=== PATIENT | female | born 1955 | race Caucasian/White ===

== ENCOUNTER 2020-03-14 05:26 | Emergency (ER) | payer BC, SELFPAY ==
[2020-03-14] VITALS (29 sets, daily range): BP systolic 126–167; BP diastolic 63–85; PULSE 93–127; RESP 13–23; TEMP 36.7; O2SAT 97–100
--- NOTE | 2020-03-14 05:15 | RT.EKG_ITS ---
APPROVED REPORT Exam: Resting ECG Patient Location: E HR:112 bpm ECG Measurements Heart Rate 112 AXIS MO 164 P 64 QRSd 87 QRS 59 QT 328 T 60 QTc 448 Conclusion Sinus tachycardia...rate> 99
--- NOTE | 2020-03-14 05:30 | DI.CT_ITS ---
EXAM: CT THORAX CTA CLINICAL HISTORY: chest pain, ?aortic dissection. TECHNIQUE: Imaging Protocol: Axial CT angiography was performed with multi-slice acquisition and mu lti-planar and/or 3D reconstructions. CONTRAST MATERIAL: Intravenous: Omnipaque 350 Contrast volume:63 mL COMPARISON: No exams were available for comparison FINDINGS: Pulmonary Arteries: Opacification of the pulmonary arteries is suboptimal; however, there is no evide nce of a filling defect to suggest pulmonary emboli. Tracheobronchial tree: Patent where visualized. Mediastinum and Aby: No dominant adenopathy or fluid collection. Pulmonary parenchyma: No consolidation or dominant measurable mass. No architectural distortion. Pleura: No effusion or pneumothorax. Heart: The heart is not dilated. No coronary artery calcifications are seen. No pericardial effusion. Aorta: Thoracic aorta non-dilated. No evidence of dissection. Mild atherosclerosis. Upper abdomen: Small hepatic cysts. Bones: Mild degenerative changes in the thoracic spine. Prior anterior cervical spine fusion. Soft tissues: Unremarkable. IMPRESSION: 1. There is suboptimal opacification of the pulmonary arteries which limits examination. No gross ev idence of pulmonary embolus is identified. 2. No evidence of aortic dissection or aneurysm. 3. Two probable hepatic cysts. RADIATION DOSE DELIVERED: 329.19mGy.cm Total DLP 329.19mGy.cm Total DLP DATA REPOSITORY: All CT scans at this facility are submitted to the National Radiology Data Registry (NRDR) Dose Index Registry (DIR) with the [employer] ([employer]). RADIATION OPTIMIZATION: All CT scans at this facility use at least one of these dose optimization te chniques: automated exposure control; mA and/or kV adjustment per patient size (includes targeted exa ms where dose is matched to clinical indication); or iterative reconstruction.
--- NOTE | 2020-03-14 05:35 | W.ED.GENAD ---
Discharge Plan Disposition Patient Disposition: HOME Condition: Improving Discharge Details Clinical Impression: Atypical chest pain, Heartburn, Palpitations Primary Care Provider: Nic Turk ED Provider: Elen Echols Home Meds and New Rx's Prescriptions: No Action Estring 2 mg (7.5 mcg /24 hour) ring 1 vag ring VAGINAL RF: 0 Discharge Instructions Instructions: Chest Pain (ED), Heart Palpitations (ED) Additional Instructions: Your workup today did not reveal any concerning findings Follow up with your primary care provider this week to discuss having stress testing If you feel more ill, have worsening pain or difficulty breathing, return immediately to the emergency department. Return the air sampling and monitoring to the hospital as directed by respiratory therapy. Discharge Data Discharge Date/Time-TO BE ENTERED AT DEPARTURE: 03/14/20 10:10 Discharge Physician: Elen Echols Medical Decision Making <Abad Napoles MD - Last Filed: 03/14/20 07:04> 64 yo female with known carotid dissections not on daily medication per patient comes in after she woke up with sensation of burning in her chest and checked her heart rate on her fit bit and it was 120 which is high for her as she is active. She took tums with some improvement in her pain but still has mild burning in the chest. No fevers, chills, cough. She arrives tachycardic with rates in the 120's, She has no leg swelling, jvd or calf pain. She has clear lungs without murmurs, denies ever being a smoker and denies drug use. Heart score is 2, will send troponin. Given known carotid dissections will obtain CTA of the chest to evaluate for possible aortic dissection. No evidence of dvt on exam and no hypoxia so doubt PE. pt's HR now down to 105 and has no complaints resting in the stretcher reading in no distress. Initial lab work unremarkable. CT pending. CT shows no acute findings and she remains stable, did advise of the two lesions in the liver and can f/u with pcp for this. Plan for delta troponin pt signed out to oncoming provider pending second troponin Differential Diagnosis Differential Diagnosis: nstemi, gerd, dissection Imaging Data Radiologic Study: Attestation: I personally reviewed and interpreted this imaging study as follows: Imaging: CT Scan Radiologist's impression: IMPRESSION: 1. No aortic dissection. 2. The study is limited for evaluation of pulmonary embolus with no gross evidence for pulmonary embolus identified. 3. Two low-density hepatic lesions, probably cysts. 4. Status post lower cervical spine fusion surgery. Lab Data Lab results reviewed: Yes I reviewed the patient's lab results. ECG Data Attestation: I personally reviewed and interpreted this ECG (s) as follows: Prior ECG tracings: not available for review Interpretation: sinus tachycardia, rate of 112, pr 164, qtc 448, no acute st t wave ischemic findings <Elen Echols DO - Last Filed: 03/14/20 15:50> 0800 --please see Dr. Napoles's note for initial presentation, exam and plan. 63-year-old female with a history of sleep apnea, carotid artery dissection who presents with sensation of heartburn and tachycardia that awoke her from sleep at 3 AM this morning. She states she has not yet gone to sleep. Heart rate 120s on arrival. Initial EKG with a heart rate of 112, sinus tachycardia no acute ischemic changes. Patient had an unremarkable work-up including labs and CTA chest which noted possible liver cysts no other acute findings. Patient given IV fluids and her heart rate decreased to 90s. 0930 -- On re-evaluation, patient is asymptomatic. She had a repeat EKG and troponin which were unremarkable. Discussed at length that she had 2 alcoholic beverages before sleep and her Fitbit triggered with possible sleep apnea, that differential diagnosis can include dehydration, sleep apnea, hormonal side effects, GI etiology, undiagnosed arrhythmia. As patient is asymptomatic at this time and hemodynamically stable, do not see an acute indication for admission and she is agreeable. Heart score 2. Will place a air sampling and monitoring. Offered to order a stress test the patient states she will follow-up with her primary care doctor for this. Advised to follow up with the primary care doctor for re-evaluation. Usual and customary return precautions given prior to discharge. Medical Records Medical records reviewed: Yes I reviewed the patient's medical records. Imaging Data Radiologic Study: Radiologist's impression: CT Angiography Chest With Contrast Exam date and time: 03/14/2020 5:35 AM Age: 64 years old Clinical indication: Chest pain; Type not specified; Prior surgery; Additional info: ? Aortic dissection TECHNIQUE: Imaging protocol: Computed tomographic angiography of the chest with intravenous contrast. 3D rendering (Not supervised by radiologist): MIP and/or 3D reconstructed images were created by the technologist. COMPARISON: No relevant prior studies available. FINDINGS: Pulmonary arteries: The study is limited for evaluation of pulmonary embolus secondary to suboptimal opacification of the pulmonary arteries. There are no gross filling defects identified in the larger pulmonary arteries. Aorta: Unremarkable. No aortic aneurysm. No aortic dissection. 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 Lungs: Unremarkable. No consolidation. No masses. Pleural space: Unremarkable. No pneumothorax. No pleural effusion. Heart: Unremarkable. No cardiomegaly. No pericardial effusion. Lymph nodes: Unremarkable. No enlarged lymph nodes. Liver: There are 2 low-density lesions in the liver. The larger 1 is in the left lobe and it measures approximately 1.2 cm in size. Bones/joints: The patient is status post spinal fusion surgery at at least C6-C7. Soft tissues: Unremarkable. IMPRESSION: 1. No aortic dissection. 2. The study is limited for evaluation of pulmonary embolus with no gross evidence for pulmonary embolus identified. 3. Two low-density hepatic lesions, probably cysts. 4. Status post lower cervical spine fusion surgery. Lab Data Lab results reviewed: Yes I reviewed the patient's lab results. Labs: Laboratory Tests Range/Units 03/14/20 03/14/20 03/14/20 05:40 05:40 05:40 WBC (4.4-10.8) 10^3/uL 8.24 RBC (3.93-5.22) 10^6/uL 4.28 Hgb (11.2-15.7) g/dL 12.7 Hct (36.0-46.0) % 38.2 MCV (80-95) fL 89.3 MCH (27.0-33.0) pg 29.7 MCHC (32.0-36.0) % 33.2 RDW (11.7-14.6) % 12.8 Plt Count (130-400) 10^3/uL 274 MPV (8.0-11.0) fL 10.5 Immature Gran % 1.3 Neutrophils % 72.1 Lymphocytes % 18.8 Monocytes % 6.4 Eosinophils % 0.8 Basophils % 0.6 Nucleated RBC % % 0 Absolute Neutrophils (1.2-6.7) 10^3/uL 5.93 Absolute Lymphocytes (1.2-3.4) 10^3/uL 1.55 Absolute Monocytes (0.1-0.8) 10^3/uL 0.53 Absolute Eosinophils (0.0-0.7) 10^3/uL 0.07 Absolute Basophils (0.0-0.2) 10^3/uL 0.05 PT (9.3-11.0) sec 9.6 INR (0.9-1.1) 1.0 APTT (21.0-27.5) sec 23.8 Sodium (136-145) mmol/L 143 Potassium (3.5-5.1) mmol/L 3.8 Chloride (98-107) mmol/L 106 Carbon Dioxide (21.0-32.0) mmol/L 28.3 Anion Gap (3-11) mmol/L 8.7 BUN (7-18) mg/dL 18 Creatinine (0.55-1.02) mg/dL 0.78 Estimated GFR/1.73 m2 (mL/min/1.73m2) >= 60.00 Glucose (74-106) mg/dL 112 H Calcium (8.5-10.1) mg/dL 9.5 Magnesium (1.8-2.4) mg/dL 2.0 Total Bilirubin (0.2-1.0) mg/dL 0.2 AST (15-37) U/L 10 L ALT (14-59) U/L 13 L Alkaline Phosphatase (46-116) U/L 102 Troponin I (<0.06) ng/mL < 0.05 NT-Pro-B Natriuret Pep (<300) pg/mL 103 Total Protein (6.4-8.2) g/dL 8.1 Albumin (3.4-5.0) g/dL 4.4 Lipase (73-393) U/L Range/Units 03/14/20 03/14/20 05:40 08:35 WBC (4.4-10.8) 10^3/uL RBC (3.93-5.22) 10^6/uL Hgb (11.2-15.7) g/dL Hct (36.0-46.0) % MCV (80-95) fL MCH (27.0-33.0) pg MCHC (32.0-36.0) % RDW (11.7-14.6) % Plt Count (130-400) 10^3/uL MPV (8.0-11.0) fL Immature Gran % Neutrophils % Lymphocytes % Monocytes % Eosinophils % Basophils % Nucleated RBC % % Absolute Neutrophils (1.2-6.7) 10^3/uL Absolute Lymphocytes (1.2-3.4) 10^3/uL Absolute Monocytes (0.1-0.8) 10^3/uL Absolute Eosinophils (0.0-0.7) 10^3/uL Absolute Basophils (0.0-0.2) 10^3/uL PT (9.3-11.0) sec INR (0.9-1.1) APTT (21.0-27.5) sec Sodium (136-145) mmol/L Potassium (3.5-5.1) mmol/L Chloride (98-107) mmol/L Carbon Dioxide (21.0-32.0) mmol/L Anion Gap (3-11) mmol/L BUN (7-18) mg/dL Creatinine (0.55-1.02) mg/dL Estimated GFR/1.73 m2 (mL/min/1.73m2) Glucose (74-106) mg/dL Calcium (8.5-10.1) mg/dL Magnesium (1.8-2.4) mg/dL Total Bilirubin (0.2-1.0) mg/dL AST (15-37) U/L ALT (14-59) U/L Alkaline Phosphatase (46-116) U/L Troponin I (<0.06) ng/mL < 0.05 NT-Pro-B Natriuret Pep (<300) pg/mL Total Protein (6.4-8.2) g/dL Albumin (3.4-5.0) g/dL Lipase (73-393) U/L 135 ECG Data Attestation: I personally reviewed and interpreted this ECG (s) as follows: Interpretation: #1 --Rate of 112, sinus, no acute ST elevation or depression. MD 164. QRS 87. QTc 448. #2 --Rate of 92, sinus, no acute ST elevation or depression. MD 154. QRS 87. QTc 451. HPI <Abad Napoles MD - Last Filed: 03/14/20 07:04> General Mode of arrival: ambulatory. Date/Time Provider Initiated Documentation: 03/14/20 05:28. Limitations to Documentation: no limitations. Information obtained by: patient. History of Present Illness 64 year old F presents to the emergency department with the chief complaint of chest burning, described as moderate, and it has been other (improving). No relieving factors improve symptom(s), No exacerbating factors reported . Patient did receive the following treatments prior to arrival, none Related Data Home Medications Medication Instructions Recorded Confirmed estradiol [Estring] 1 vag ring VAGINAL 03/14/20 Allergies Allergy/AdvReac Type Severity Reaction Status Date / Time No Known Drug Allergies Allergy Unverified 03/14/20 05:58 General Stated Complaint: Chest Pain TELLO: 2 Review of Systems <Abad Napoles MD - Last Filed: 03/14/20 07:04> All systems reviewed & are unremarkable except as noted in HPI and below Constitutional Constitutional: Denies chills, Denies fever(s) and Denies weakness Cardiovascular Cardiovascular: Denies dyspnea Respiratory Respiratory: Denies cough and Denies dyspnea Gastrointestinal Gastrointestinal: Denies abdominal pain, Denies nausea and Denies vomiting Neurologic Neurologic: Denies weakness PFSH <Abad Napoles MD - Last Filed: 03/14/20 07:04> Medical History (Updated 03/14/20 @ 09:54 by Elen Echols DO) Carotid artery dissection Cervical spine fracture Obstructive sleep apnea Surgical History (Updated 03/14/20 @ 08:46 by Elen Echols DO) Colonoscopy - MAC (07/17/17) History of bunionectomy History of ear, nose, and throat (ENT) surgery Nose reconstruction History of fusion of cervical spine Social History Smoking/Tobacco Use Status: Never Smoking risk assessment performed?: Yes Alcohol Intake: current Alcohol Intake frequency: holidays/special occasions only Drug use: Never Do you feel safe at home: Yes Do you feel safe in your relationship?: Yes Exam <Abad Napoles MD - Last Filed: 03/14/20 07:04> Const General: no acute distress Orientation: alert HENWV Head: normal to inspection Ears: external ears normal General nose exam: external nose normal Mouth: moist mucous membranes Eyes General: appearance normal, both eyes and all related structures Neck Neck: normal visual inspection Resp Effort & Inspection: normal respiratory effort and able to speak in complete sentences Cardio Rate: tachycardic Skin General skin exam: no rashes or lesions noted Neuro General: patient alert and patient oriented x3 Extrem General: normal to inspection Psych Mental Status: mental status grossly normal Course <Abad Napoles MD - Last Filed: 03/14/20 07:04> Vital Signs Vital signs: Vital Signs Temperature 36.7 C 03/14/20 05:29 Pulse 127 H 03/14/20 05:29 Respiratory Rate 18 03/14/20 05:29 Blood Pressure 167/85 H 03/14/20 05:29 Pulse Oximetry 98 03/14/20 05:29 Temperature 36.7 C 03/14/20 05:29 Temperature Source Temporal Artery Scan 03/14/20 05:29 Pulse 127 H 03/14/20 05:29 Respiratory Rate 18 03/14/20 05:29 Respiratory Effort Non-Labored 03/14/20 05:33 Blood Pressure 167/85 H 03/14/20 05:29 Blood Pressure Position Sitting 03/14/20 05:29 Pulse Oximetry 98 03/14/20 05:29 Oxygen Delivery Method Room Air 03/14/20 05:29 Oxygen Flow Rate 0 03/14/20 05:29 Sign Out <Abad Napoles MD - Last Filed: 03/14/20 07:04> Sign Out Data: Sign Out Comment: chest pain, awaiting second troponin Last updated by Abad Napoles MD at 03/14/20 06:39
[2020-03-14 05:59] LABS: Abs Immature Grans 0.11 10^3/uL (0.0-0.06); Absolute Basophil Count 0.05 10^3/uL (0.0-0.2); Absolute Eosinophil Count 0.07 10^3/uL (0.0-0.7); Absolute Lymphocyte Count 1.55 10^3/uL (1.2-3.4); Absolute Monocyte Count 0.53 10^3/uL (0.1-0.8); Absolute Neutrophil Count 5.93 10^3/uL (1.2-6.7); Basophils % 0.6; Eosinophils % 0.8; HCT 38.2 % (36.0-46.0); HGB 12.7 g/dL (11.2-15.7); Immature Grans % 1.3; Lymphocytes % 18.8; MCH 29.7 pg (27.0-33.0); MCHC 33.2 % (32.0-36.0); MCV 89.3 fL (80-95); MPV 10.5 fL (8.0-11.0); Monocytes % 6.4; Neutrophils % 72.1; Nucleated RBC 0 %; Platelet Count 274 10^3/uL (130-400); RBC 4.28 10^6/uL (3.93-5.22); RDW 12.8 % (11.7-14.6); RDW-SD 42.4 fL; WBC 8.24 10^3/uL (4.4-10.8)
[2020-03-14] MEDS: Omnipaque 350 MG/ML 100 ML BTL IJ (06:13)
[2020-03-14] MEDS: Normal Saline - Diluent 50 ML VIAL IV (06:14)
[2020-03-14 06:15] LABS: PTT Activated 23.8 sec (21.0-27.5); Prothrombin Time 9.6 sec (9.3-11.0)
[2020-03-14 06:17] LABS: ALT 13 U/L (14-59); AST 10 U/L (15-37); Albumin 4.4 g/dL (3.4-5.0); Alkaline Phosphatase 102 U/L (46-116); Anion Gap 8.7 mmol/L (3-11); BUN 18 mg/dL (7-18); Bilirubin, Total 0.2 mg/dL (0.2-1.0); CO2 28.3 mmol/L (21.0-32.0); CREATININE 0.78 mg/dL (0.55-1.02); Calcium 9.5 mg/dL (8.5-10.1); Chloride 106 mmol/L (98-107); Glucose 112 mg/dL (74-106); NT-proBNP 103 pg/mL (<300); Potassium 3.8 mmol/L (3.5-5.1); Sodium 143 mmol/L (136-145); Total Protein 8.1 g/dL (6.4-8.2)
[2020-03-14] MEDS: Normal Saline 1,000 ML 1000 ML IV (06:17)
[2020-03-14 06:21] LABS: Troponin I < 0.05 ng/mL (<0.06)
--- NOTE | 2020-03-14 06:43 | DI.VRAD_ITS ---
PROCEDURE INFORMATION: Exam: CT Angiography Chest With Contrast Exam date and time: 03/14/2020 5:35 AM Age: 64 years old Clinical indication: Chest pain; Type not specified; Prior surgery; Additional info: ? Aortic dissection TECHNIQUE: Imaging protocol: Computed tomographic angiography of the chest with intravenous contrast. 3D rendering (Not supervised by radiologist): MIP and/or 3D reconstructed images were created by the technologist. COMPARISON: No relevant prior studies available. FINDINGS: Pulmonary arteries: The study is limited for evaluation of pulmonary embolus secondary to suboptimal opacification of the pulmonary arteries. There are no gross filling defects identified in the larger pulmonary arteries. Aorta: Unremarkable. No aortic aneurysm. No aortic dissection. 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 Lungs: Unremarkable. No consolidation. No masses. Pleural space: Unremarkable. No pneumothorax. No pleural effusion. Heart: Unremarkable. No cardiomegaly. No pericardial effusion. Lymph nodes: Unremarkable. No enlarged lymph nodes. Liver: There are 2 low-density lesions in the liver. The larger 1 is in the left lobe and it measures approximately 1.2 cm in size. Bones/joints: The patient is status post spinal fusion surgery at at least C6-C7. Soft tissues: Unremarkable. IMPRESSION: 1. No aortic dissection. 2. The study is limited for evaluation of pulmonary embolus with no gross evidence for pulmonary embolus identified. 3. Two low-density hepatic lesions, probably cysts. 4. Status post lower cervical spine fusion surgery. Dictated and Authenticated by: Delroy Newberry MD. Ordering:OH Melgoza MD
--- NOTE | 2020-03-14 08:30 | RT.EKG_ITS ---
APPROVED REPORT Exam: Resting ECG Patient Location: E HR:92 bpm ECG Measurements Heart Rate 92 AXIS NV 154 P 41 QRSd 87 QRS 51 QT 365 T 46 QTc 451 Conclusion Sinus rhythm...normal P axis, V-rate 60- 99 I have reviewed and interpreted ECG and agree with software generated interpretation.
[2020-03-14 09:17] LABS: Lipase 135 U/L (73-393)
[2020-03-14 09:28] LABS: Troponin I < 0.05 ng/mL (<0.06)
--- NOTE | 2020-03-30 08:43 | ZIOP_ITS ---
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 Minimum was 52 and maximum 174 There were rare atrial and ventricular ectopic beats There was a total of six runs of nonsustained ventricular tachycardia. Most were 3-4 beats in duration. The longest was 20 beats. These were asymptomatic There were four brief atrial runs, longest five beats in duration, asymptomatic Patient triggered events did not correspond to any dysrhythmia
== END 2020-03-14 10:10 | disposition home or self-care (01) ==
PROVIDERS: Emergency Medicine; Emergency Provider Physician Assistant; PCP Internal Medicine
DX: R07.89 Other chest pain (principal); R12 Heartburn; R00.2 Palpitations
CPT/HCPCS: 0296T; 36415; 71275; 80053; 83690; 93005; 96360; 99285; 83735; 83880; 84484; 85025; 85610; 85730; 93010; J3490

== ENCOUNTER → 2023-01-15 09:01 | Outpatient (BNVA) | payer MEDICARE, BC, SELFPAY | PROVIDERS: PCP Internal Medicine; Referring Provider Internal Medicine; Visit Provider Surgery | DX: Z12.11 Encounter for screening for malignant neoplasm of colon (principal); Z86.010 Personal history of colon polyps ==

== ENCOUNTER 2023-01-23 10:22 | Day surgery (SDC) | payer MEDICARE, BC, SELFPAY ==
--- NOTE | 2023-01-22 16:26 | W.COLOREPORT ---
Date of service: 01/23/23 Time of Service: 11:00 Colonoscopy Report Date of procedure: 01/23/23 Pre-op diagnosis general: Tubular adenoma Post-op diagnosis procedure note: other (Diverticula) Surgeon: Ana Maria Riley Anesthesia Type: General:No Airway Estimated blood loss (mL): 0 Pathology: none sent Complications: None Disposition: same day Prep: Miralax/Dulcolax Retraction Time: 7 Procedure Description: After informed consent was obtained the patient was taken to the procedure room and placed in a left decubitous position. Monitors were applied and a time out was done. The patients name, date of , procedure, allergies to medications and metal in their body was reviewed. The patient was then sedated. Once sedated and comfortable a rectal exam was done. External exam was normal. Internal exam revealed a normal sphincter tone and no palpable masses. The scope was then introduced and retrofelexed. Grade 2 internal hemorrhoids were identified x1 column. The scope was then advanced to the cecum without difficulty. The TI and appendiceal orifice were identified. The prep was BBPS 3 in all segments for a total of 9. The scope was then slowly retracted over 7 minutes back into the rectum. No polyps were visualized today. She does have 1 or 2 small diverticulum in the sigmoid colon with inspissated stool. There is no signs of active bleeding or infection. The rest of the mucosa is pink and healthy with a normal vascular pattern. the scope was removed and the patient was woken up and taken back to Same day surgery in stable condition. The patient tolerated the procedure well and there were no immediate complications. Follow up: The patient should follow up in 7 years unless they develop changes in bowel habits or other new gastrointestinal complaints.
--- NOTE | 2023-01-22 16:27 | W.PM.DSUDISC ---
Date of service: 01/23/23 Time of Service: 12:29 Discharge Plan Disposition Patient Disposition: Home Condition: Good Discharge Details Reason For Visit: Colon scope Attending Provider: Ana Maria Riley Primary Care Provider: Nic Turk Home Meds and New Rx's Prescriptions: Continued estradiol 0.01 % (0.1 mg/gram) cream 1 appful VAGINAL DIRECTED Discontinued bisacodyl [Dulcolax (bisacodyl)] 5 mg tablet,delayed release (DR/EC) 5 mg PO ONCE Qty: 4 0RF Rx Instructions: Take per colonoscopy instructions provided by ordering providers office polyethylene glycol 3350 17 gram/dose powder 17 g PO ONCE Qty: 238 0RF Rx Instructions: Take per colonoscopy instructions provided by ordering providers office Discharge Instructions Additional Instructions: [facility] Colonoscopy Post-Op Instructions Instructions for Everyone who is given Anesthesia: For your safety, please do the following for the next twenty-four (24) hours: *Do Not operate a motor vehicle (car, truck, motorcycle, etc.) *Do Not drink alcoholic beverages or use any recreational drugs for the first 24 hours or while taking pain medications. The medications in your body may have a reaction that can be dangerous. *Do Not make any important decisions or sign any important papers. Findings: few small divertic No polyps Follow up: Repeat in 7 yrs time 1. No lifting over 20 pounds or strenuous activity for the first 24 hours after your procedure. After 24 hours there are no restrictions on your activity but you may feel fatigued for a few days. 2. After you arrive home you may have a light meal and return to your normal diet as you can tolerate it without feeling sick to your stomach. 3. You may have a bloated, gaseous feeling in your belly (abdomen) after a colonoscopy. Passing gas and belching will help. Walking or lying down on your left side with your knees flexed may relieve the discomfort. Call the office at [phone] (Office) or [phone] (Hospital) right away if you notice any of the following: a.Vomiting of blood or ?coffee ground stools?. b.Rectal bleeding 1Tbsp, blood clots or continuous bleeding. c.Severe belly (abdominal) pain. d.A hard distended belly (abdomen) and an inability to pass gas. 4. Please don?t expect to have a normal BM (bowel movement) for 2-3 days after your procedure. 5. If there are questions regarding the findings of your procedure, please contact your doctor 6. If you are unable to contact your doctor with a problem, contact the hospital at [phone]. 7. Continue all your regular medications unless directed otherwise. I understand the above instructions and have no questions. Signature of Patient or Adult Escort Name of Responsible Adult Escort Signature of Nurse Date/Time DIVERTICULAR DISEASE OVERVIEW???A diverticulum is a pouch-like structure that can form through points of weakness in the muscular wall of the colon (ie, at points where blood vessels pass through the wall). Diverticulosis affects men and women equally. The risk of diverticular disease increases with age. It occurs throughout the world but is seen more commonly in developed countries. WHAT IS DIVERTICULAR DISEASE? Diverticulosis???Diverticulosis merely describes the presence of diverticula. Diverticulosis is often found during a test done for other reasons, such as flexible sigmoidoscopy, colonoscopy, or barium enema. Most people with diverticulosis have no symptoms and will remain symptom free for the rest of their lives. A person with diverticulosis may have diverticulitis, or diverticular bleeding. Diverticulitis???Inflammation of a diverticulum (diverticulitis) occurs when there is thinning and breakdown of the diverticular wall. This may be caused by increased pressure within the colon or by hardened particles of stool, which can become lodged within the diverticulum. The symptoms of diverticulitis depend upon the degree of inflammation present. The most common symptom is pain in the left lower abdomen. Other symptoms can include nausea and vomiting, constipation, diarrhea, and urinary symptoms such as pain or burning when urinating or the frequent need to urinate. Diverticulitis is divided into simple and complicated forms. ?Simple diverticulitis, which accounts for 75 percent of cases, is not associated with complications and typically responds to medical treatment without surgery. ?Complicated diverticulitis occurs in 25 percent of cases and usually requires surgery. Complications associated with diverticulitis can include the following: ?Abscess ? a localized collection of pus ?Fistula ? an abnormal tract between two areas that are not normally connected (eg, bowel and bladder) ?Obstruction ? a blockage of the colon ?Peritonitis ? infection involving the space around the abdominal organ ?Sepsis ? overwhelming body-wide infection that can lead to failure of multiple organs Diverticular bleeding???Diverticular bleeding occurs when a small artery located within a diverticulum is eroded and bleeds into the colon. Diverticular bleeding usually causes painless bleeding from the rectum. In approximately 50 percent of cases, the person will see maroon or bright red blood with bowel movements. Is bleeding with a bowel movement normal?It is not normal to see blood in a bowel movement; this can be a sign of several conditions, most of which are not serious (eg, hemorrhoids) but some of which are serious and require immediate treatment. Anyone who sees blood after a bowel movement should consult with their healthcare provider to determine if further testing or evaluation is needed. DIVERTICULOSIS AND DIVERTICULITIS DIAGNOSIS???Diverticulosis is often found during tests performed for other reasons. ?Barium?enema ? This is an x-ray study that uses barium in an enema to view the outline of the lower intestinal tract. This is an older test and has been largely replaced by computed tomography (CT) scan. ?Flexible sigmoidoscopy ? This is an examination of the inside of the sigmoid colon with a thin, flexible tube that contains a camera. ?Colonoscopy ? This is an examination of the inside of the entire colon. ?CT scan ? A CT scan is often used to diagnose diverticulitis and its complications. If diverticulitis (not just diverticulosis) is suspected, the above three tests should not be used because of the risk of perforation. TREATMENT Diverticulosis???People with diverticulosis who do not have symptoms do not require treatment. However, most clinicians recommend increasing fiber in the diet, which can help to bulk the stools and possibly prevent the development of new diverticula, diverticulitis, or diverticular bleeding. Fiber is not proven to prevent these conditions in all patients but may help to control recurrent episodes in some. Increase fiber???Fruits and vegetables are a good source of fiber.? Fiber content of packaged foods can be calculated by reading the nutrition label. Seeds and nuts???Patients with diverticular disease have historically been advised to avoid whole pieces of fiber (such as seeds, corn, and nuts) because of concern that these foods could cause an episode of diverticulitis. However, this belief is completely unproven. We do not suggest that patients with diverticulosis avoid seeds, corn, or nuts. Diverticulitis???Treatment of diverticulitis depends upon how severe your symptoms are. Home treatment???If you have mild symptoms of diverticulitis (mild abdominal pain, usually left lower abdomen), you can be treated at home with a clear liquid diet and oral antibiotics. However, if you develop one or more of the following signs or symptoms, you should seek immediate medical attention: ?Temperature >100.1?F (38?C) ?Worsening or severe abdominal pain ?An inability to tolerate fluids Hospital treatment???If you have moderate to severe symptoms, you may be hospitalized for treatment. During this time, you are not allowed to eat or drink; antibiotics and fluids are given into a vein. If you develop an abscess of the colon, you may require drainage of the abscess (usually performed by placing a drainage tube across the abdominal wall) or by surgically opening the affected area. Surgery???If you develop a generalized infection in the abdomen (peritonitis), you will usually require an emergency operation. A two-part operation may be necessary in some cases. ?The first operation involves removal of the diseased colon and creation of a colostomy. A colostomy is an opening between the colon and the skin, where a bag is attached to collect waste from the intestine. The lower end of the colon is temporarily sewed closed to allow it to heal. ?Approximately three to six months later, a second operation is performed to reconnect the two parts of the colon and close the opening in the skin. You are then able to empty your bowels through the rectum. Sometimes patients require up to a year to recover from the first operation, depending on how sick they were. In non-emergency situations, the diseased area of the colon can be removed and the two ends of the colon can be reconnected in one operation, without the need for a colostomy. Surgery versus medical therapy???An operation to remove the diseased area of the colon may be necessary if you do not improve with medical therapy. After an episode of uncomplicated diverticulitis, elective surgery is generally not required as the risk of another attack or requiring emergency surgery is low. However, patients with persistent symptoms attributable to diverticulitis, a history of complicated diverticulitis, or a compromised immune system should be evaluated for possible surgery to prevent another attack. In such patients, another attack has been associated with a higher risk of complications or . Of course, the decision will also depend in part upon your other medical conditions and ability to undergo surgery. In many cases, an elective operation can be performed laparoscopically, using small incisions, rather than the typical vertical (up and down) abdominal incision. Laparoscopic surgery usually allows you to recover more quickly and shortens the hospital stay. After diverticulitis resolves???After an episode of diverticulitis resolves, if you have not had a recent colonoscopy, the entire length of the colon should be evaluated to determine the extent of disease and to rule out the presence of abnormal lesions such as polyps or cancer. Recommended tests include colonoscopy, barium enema and sigmoidoscopy, or CT colonography. Diverticular bleeding???Most cases of diverticular bleeding resolve on their own. However, some people will need further testing or treatment to stop bleeding, which may include a colonoscopy, angiography (a treatment that blocks off the bleeding artery), bleeding scan, or surgery. DIVERTICULAR DISEASE PROGNOSIS Diverticulosis???Over time, diverticulosis may cause no problems or it may cause episodes of bleeding and/or diverticulitis. Approximately 15 to 25 percent of people with diverticulosis will develop diverticulitis, while 5 to 15 percent will develop diverticular bleeding. Diverticulitis???Approximately 85 percent of people with uncomplicated diverticulitis will respond to medical treatment, while approximately 15 percent of patients will need an operation. After successful treatment for a first attack of diverticulitis, one-third of patients will remain asymptomatic, one-third will have episodic cramps without diverticulitis, and one-third will go on to have a second attack of diverticulitis. The prognosis tends to remain similar following a second attack of diverticulitis. Only 10 percent of people remain symptom-free after a second attack. Subsequent attacks tend to be of similar severity, not increasing in severity as previously believed. High Fiber Diet What is Dietary Fiber? All fiber comes from plants, bushes, jessee or trees.? Of course, the ones that we eat provide us with fruits, vegetables and grains.? There are many different types of fiber but the three that are most important to the health of the body are: Insoluble Fiber This fiber does not dissolve in water, nor is it fermented by the bacteria residing in the colon.? Rather, it retains water and in so doing, helps to promote a larger, bulkier and more regular bowel activity.? This, in turn, may be important in preventing disorder such as diverticulosis and hemorrhoids, and in sweeping out certain toxins and cancer causing carcinogens.? Sources of insoluble fiber are: ? whole grain wheat and other whole grains ? corn bran, including popcorn, unflavored and unsweetened ? nuts and seeds ? potatoes and the skins from most fruits from trees such as apples, bananas and avocados ? many green vegetables such as green beans, zucchini, celery and cauliflower ? some fruit plants such as tomatoes and kiwi Soluble Fiber These fibers are fermented or used by the colon bacteria as a food source or nourishment.? When these good bacteria grow and thrive, many health benefits occur in both the colon and the body.? Soluble fiber is present in some degree in most edible plant foods, but the ones with the most soluble fiber include: ? legumes such as peas and most beans, including soybeans ? oats, rye and barley ? many fruits such as berries, plums, apples bananas and pears ? certain vegetables such as broccoli and carrots ? most root vegetables ? psyllium husk supplement products Benefits of a High Fiber Diet The health benefits of a high fiber diet, consumed on a regular basis and reaching recommended amounts (below), are now fairly well-defined. There are some additional benefits in the early research stage with the prebiotic soluble fibers. What is now known regarding a high fiber diet include: Bowel Regularity A high fiber diet promotes regularity with a softer, bulkier and regular stool pattern. This decreases the chance of hemorrhoids, diverticulosis and perhaps colon cancer. Cholesterol and Reduced Triglycerides The soluble fibers are the ones that will reduce cholesterol levels when used on a regular basis. Psyllium husk and prebiotic soluble fiber will also reduce cholesterol. They may also reduce the incidence of coronary heart disease. Oats, flax seeds and legumes or beans are the recommended fibers. Colon Polyps and Cancer It is still not certain if a high fiber diet helps prevent colon cancer. Considerable research suggests that this may occur. Certainly it makes sense to increase regularity and so speed the movement of cancer causing carcinogens through the bowel. In addition, reducing a heavy meat diet reduces the bile flow from the liver in a favorable way. This, too, reduces the amount of carcinogens that reach and are manufactured in the colon. Finally, a high fiber diet, including prebiotic soluble fiber, increases the integrity and health of the wall of the colon. The risk of cancer may be reduced. Colon Wall Integrity A high fiber diet changes the bacterial makeup of the colon toward a more favorable balance. For instance, it is known that those people with obesity, diabetes type 2 and inflammatory bowel disease have a predominance of bad bacteria in the colon. This, in turn, may render the bowel wall weak and allow bacteria and, indeed, even toxins to seep through. A high fiber diet with a modest reduction in animal and meat products may return the bacterial makeup to a more positive balance. This, in particular, has been seen when the soluble fiber prebiotics are added to the diet. Blood Sugar Soluble fiber such as in legumes (beans), oats and in prebiotic fibers slows the absorption of blood sugar and so helps regulate the sugar in the blood. Insoluble fiber on a regular basis is associated with reduced risk of type 2 diabetes. Weight Loss High fiber diets are more filling and give a sense of fullness sooner than an animal and meat based diet does. In addition, the soluble prebiotic fibers have been shown to turn off the hunger hormones produced in the wall of the gut and to increase the hormones that give a sense of fullness. Those hormones are made in the wall of the gut. New medical research has shown that the bacterial makeup in the colon in overweight people is abnormal to the extent that they manufacture and absorb almost twice the number of calories through the colon wall as do normals. Prebiotic fibers (below) will help change this hormonal balancein a favorable way. Bacteria and the Function of the Colon The colon finishes the digestive process. Hopefully, the waste products move through in a nice regular manner. Insoluble fibers help this process by retaining water and so producing a bulkier, softer stool, which is easy to pass. The additional role of the colon is to provide a home for an enormous number of micro-organisms, mostly bacteria. Recent research has shown that there are over 1,000 species of bacteria with a total bacterial count ten times the number of cells in the body. These bacteria play a major role in keeping the colon wall itself healthy. In addition, these good bacteria produce a very strong immune system for the body. They significantly increase calcium absorption and bone density. They provide other documented benefits. It is the soluble fibers in the diet that are so effective in stimulating the growth of good colon bacteria. How Much is Enough? The amount of fiber in food is measured in grams.? National nutritional authorities recommend the following amounts of dietary fiber daily. Under Age 50? Over Age 50 Men? 38 grams? 30 grams Women??? 25 grams? 21 grams For a week or so, it is best to tally the amount of fiber you are consuming.? Boxed and packaged foods will have the amount of fiber per serving on the nutrition label. Which Fibers and Which Foods are Best? As noted, healthy fiber is only found in plants. The three major categories are whole grains, fruits and vegetables. Whole Grains Wheat, oats, barley, wild or brown rice, amaranth, buckwheat, bulgur, corn, millet, quinoa, rye, sorghum, teff and triticals. By far, wheat, oats and wild or brown rice are most common. Always buy whole grain products. White bread, baked goods and rolls almost always are made from wheat flour. Wheat flour is white because most of the fiber, vitamins and other nutrients have been removed. Try not buy enriched grains. What this means is that simple white flour has had vitamins added to it by the corporate staff accountant. The word, enriched, implies a good and healthy product. On the contrary, enriched means that most of the fiber has been removed and a few vitamins added. Fruits Fruits come from trees such as apple and pear or from bushes or jessee. You should eat a wide variety of fruits, preferably with every meal. In many cases, the skin of a fruit such as apple will contain much of the insoluble fiber while the pulp contains most of the soluble fiber. To the extent possible, buy organic fruits as these will have little or no pesticides. Always wash fruit. Vegetables Eat a wide variety of vegetables. They should be a mainstay of lunch and dinners. Frozen vegetables retain as much nutrition and fiber as fresh vegetables. As with fruit, try to buy organic to reduce any residual pesticide ingestion. Wash fresh vegetables thoroughly. Cruciferous vegetables such as broccoli, [place] sprouts and cauliflower contain certain chemicals such as sulforaphane. This substance has very strong anti-cancer properties and should be eaten frequently. Legumes, Beans, Peas and Soybeans These vegetables have plenty of soluble fiber and should be part of a varied vegetable intake. Beans, in particular, contain a certain type of fiber that may lead to harmless gas or bloating. Nuts and Seeds These are rich sources of fiber and are a good substitute for sweets such as candies and baked sweet goods. While nuts and seeds are rich in fiber, they also contain vegetable fat and so can and do add calories. Read the Labels As noted, fresh and frozen foods are usually better.? They have good nutrition and few, if any, chemicals added to them.? When buying packaged foods and, in particular grains, look for three things: ? The first word on the label should be whole, such as whole wheat or whole grain. ? Check out the calories and the amount of fiber in a serving. ? How many and what other additives or chemicals are added.? Fewer is always better.? Do you know what each additive does?? Some are added not for the benefit of the buyer assistant but rather for manufacturers.? These could and do include sugar, artificial flavor, chemicals to prevent oxidation and spoilage, emulsifiers to blend the product.? You have to be a fur clipper. Fiber Facts, Nuggets and Pearls ? For breakfast you can easily get the day started well by using a high fiber, whole grain cereal.? Check the labels.? Add fruit such as blueberries and bananas.? If you are an egg eater, use whole wheat or grain toast.? Adding wheat germ gives you a good fiber kick. ? Always use whole grain or wheat with rolls and sandwiches.? Does your fast food store not have them?? Perhaps you look elsewhere.? Eating an occasional black huddleston or veggie burger provides variety. ? Snacks should consist of fruit and/or nuts.? While nuts are loaded with fiber, they are an energy rich food, meaning they have a lot of calories in a small packet. ? Fruit juices should contain pulp.? Clear juices such as clear orange, pear or apple juice contain little fiber and have a lot of fructose.? Prune juice is usually high in fiber. ? Homemade soups ? adding fresh or frozen vegetables to a chicken or vegetable stock is a good way to start homemade soup. ? Salads ? adding cooked and then chilled vegetables provide great flavoring to almost any salad.? Remember, a lazo salad has lots of cooked corn in it.? Small slices of apples or oranges and nuts such as chopped walnuts or sliced almonds always adds taste, variety and fiber to almost any salad. ? Fruit ? Try to eat fruit of some type with almost every meal. ? Rethink how you place the various foods on your dinner plate.? Reducing the portions of the meat or animal food portion to the side with equal or more portions of vegetables, legumes and fruits portion always allows for more fiber.? There was never anything magic about making the meat or animal food portion the main part of the dinner plate.? Eating from smaller plates can, over time, trick your mind and fpc habit of using a dinner plate.? Again, there is nothing magic in an 11, 12, or 13 inch dinner plate. Fiber Supplements There are a variety of fiber supplements available on the food or pharmacy shelves. Psyllium This soluble plant fiber has been used in [place] for over 2,000 years. It is a soluble fiber with mucilage in it. This acts to retain a lot of water and also is fermented by colon bacteria. When 7 grams a day are used, it does lower cholesterol. Metamucil in various forms is psyllium. Methyl Cellulose All the cellulose products come from finely ground wood chips which are then treated in a variety of ways such as boiling in acids. Methyl cellulose is an insoluble fiber which does dissolve in water. It is also an emulsifier, meaning it blends oils and water. Citrucel is methyl cellulose (MC). MC may not be appropriate for Crohn?s disease or ulcerative colitis as several medical studies have shown that certain emulsifiers dissolve the mucous lining of the colon in animals prone to Crohn?s disease. This then allows bacteria to invade the underlying tissue. Fiber and Gas Everyone has intestinal gas and that is a good thing.? It means that bacteria, hopefully the good ones, are thriving.? The normal amount of flatus passed each day depends on sex and what is eaten.? The normal number of flatus is 10-20 times a day.? When the bacteria that make intestinal gases are growing, it also means that other good bacteria are using the same fibers to grow and produce multiple health benefits, including the production of healthy short-chain fatty acids.? These substances are produced quietly in the colon and produce many health-related outcomes. Soluble fiber should always be used in a gradual manner.? If too much is consumed at any one time, then excess, but harmless, intestinal gas can occur.? People with irritable bowel syndrome are particularly prone to bloating and mild cramping.? In this instance, soluble fiber in the diet or supplement should be used in small doses and increased gradually. Finally, prebiotic fibers tend to cause the production of short-chain fatty acids which acidify the colon.? This, in turn, reduces or stops the growth of bacteria that make the smelly hydrogen sulfide gases that produce noxious flatus.? People who consume many vegetables with prebiotics or take a prebiotic fiber supplement often have non-odoriferous flatus. Fiber and Irritable Bowel Syndrome Irritable bowel syndrome (IBS) is one of the most common disorders of the lower digestive tract.? The symptoms of IBS can be quite varied.? They can be a mix of several symptoms such as constipation, diarrhea, crampy abdominal discomfort, bloating and gas.? An attack of IBS can be triggered by emotional tension and anxiety, poor dietary habits and certain medications.? It is now known that infections in the intestine can lead to long-term IBS symptoms.? Increased amounts of fiber in the diet can help relieve the symptoms of irritable bowel syndrome by producing soft, bulky stools.? This helps to normalize the time it takes for the stool to pass through the colon.? Recent medical research with newer techniques has shown some surprising and dramatic findings for IBS patients.? Specifically, there is a very significant and abnormal shift of bacteria from those that provide health benefits to those bad bacteria that we really do not want in the gut.? The technical name for this bad group of bacteria is called Firmicutes.? Along with this abnormal bacterial collection, there is a smoldering low-grade inflammation in the gut wall that may contribute to symptoms.? The goal for IBS patients should be to gradually increase the soluble dietary fibers in the diet so as to promote the growth of good bacteria and so suppress the bad ones along with the associated inflammation. IBS patients need to be careful of the amount of soluble fiber they consume.? The reason for this is that, while the good colon bacteria thrive on these fibers and produce health benefits, other gas-forming bacteria may generate excessive but harmless gas and subsequent bloating.? Thus, soluble plant fibers or a dietary prebiotic supplement should be taken in small initial doses and then gradually increased to tolerance. Fiber and Colon Polyps/Cancer Colon cancer is a major health problem. This disease is most common in Western cultures. It is not seen very often in rural cultures where the diet is mostly plant based. Usually, colon cancer starts out as a colon polyp, a benign mushroom-shaped growth. In time it grows, and in some people it becomes cancerous. Colon cancer is usually always curable if polyps are removed when found or if surgery is performed at an early stage. It is now known that people can inherit the risk of developing colon cancer, but diet is important, too. As noted, there is a very low rate of colon cancer in residents of countries where grains are unprocessed and retain their fiber. It seems that in the Western world, cancer-containing agents (carcinogens) remain in contact with the colon wall for a longer time and in higher concentrations. So, a large bulky stool may act to dilute these carcinogens by moving them through the bowel more quickly. Less carcinogenic exposure to the colon may mean fewer colon polyps and less cancer. A very current review of the entire world?s literature on the effect of fiber on colon polyps and cancer prevention has shown rather clearly that for every 10 grams of fiber added to the diet, there is a 10% reduction in incidence of colon cancer. So the recommended 30 gram fiber diet would result in a 30% less chance of getting these tumors. There are also substances produced in the colon by the good bacteria that seem to retard certain pre-cancer factors from developing. They are called short-chain fatty acids (SCFA). See above for description of SCFAs. A high fiber diet increases these substances. So, the combination of dietary fiber and the production of short-chain fatty acids have a clear health benefit. Fiber and Diverticulosis Prolonged, vigorous contraction of the colon over a long period of time may result in diverticulosis.? This increased pressure causes small and, eventually, larger ballooning pockets to form.? These pockets by themselves cause no problem.? However, sometimes they become infected (diverticulitis) or even break open (perforate) causing infection or inflammation within the abdomen (peritonitis).? A high fiber diet increases the bulk in the stool and thereby reduces the pressure within the colon.? By so doing, the formation of pockets may be reduced or possibly even stopped. In the past, many physicians were fearful that seeds as in tomatoes, nuts or berries were harmful and could get inside these pockets and rattle around, causing damage. We now know that this has never been the case and that these foods contain lots of fiber and are actually beneficial for diverticulosis patients. Certain bulking agents such as psyllium are traditional types of bulk producing supplements.? Psyllium is a soluble fiber.? Combining it with insoluble fiber as in wheat bran or corn bran (no gluten) can enhance this bulking effect even more.? A product containing a prebiotic, psyllium and wheat bran is probably a very good combination for bowel regularity. Prebiotinhttps://www.[employer]/ Regularity/Diverticulosis is one such product. Starting a Fiber Supplement ?When consumed at recommended levels,?dietary fiberhttps://www.[facility].org/healthy-lifestyle/gnvdvmvad-god-yyyoaar-eating/in-depth/fiber/art-69309375?mc_id=&utm_source=[employer]&utm_medium=l&utm_content=content&utm_campaign=van burenHomeSphere&marybel=[facility]&placementsite=[place]&uvhaj=099807?is widely recognized to have health benefits, including relief of?constipationhttps://www.[facility].org/diseases-conditions/constipation/symptoms-causes/sy-86056575?mc_id=us&utm_source=[employer]&utm_medium=l&utm_content=content&utm_campaign=[employer]&marybel=[facility]&placementsite=[place]&enarf=043972. Adult women 50 and younger should consume at least 25 grams of fiber a day. Women 51 and older should have at least 21 grams a day. Adult men need at least 38 grams of fiber a day if they are younger than 50 and at least 30 grams of fiber a day if they are 51 and older. Ninety percent of the [place] population consumes far below those recommendations, averaging only 15 grams of daily fiber. Fiber-rich foods include fruits, vegetables, whole grains and legumes. Many cereals, such as bran flakes, are good sources of fiber. Although fiber supplements can fill the daily fiber gap, they usually have only one type of fiber, rather than a variety of fibers and micronutrients, and they may not provide all the health benefits associated with fiber in food. Therefore, boost your fiber intake in your diet first by eating a wide variety of high-fiber foods. If you still can?t get enough fiber to meet the daily recommendation, consider using a supplement. Many fiber supplements can be used regularly fpc. Fiber is classified as soluble or insoluble. Soluble fibers are more fermentable and may cause gas. Insoluble fibers move through the digestive system largely intact, and that can increase stool bulk. Most fiber supplements are exclusively soluble or insoluble fiber. For example, FiberCon (calcium polycarbophil) and Benefiber (wheat dextrin) are mainly soluble fiber. They tend to cause more bloating and flatulence. Citrucel (methylcellulose) is mainly insoluble fibers that are nonfermentable, so it?s less likely to contribute to bloating and gas. Psyllium husk (Metamucil and Konsyl) is rich in both soluble and insoluble fiber. Generally, fiber supplements with mainly insoluble fiber may be a better option for constipation. Before taking a fiber supplement, ask your health care provider or pharmacist to review your medications. Fiber supplements can decrease the absorption of certain medications, including drugs that treat thyroid disorders,?depressionhttps://www.[facility].org/diseases-conditions/depression/symptoms-causes/[facility]-04242670?mc_id=us&utm_source=newsnetwork&utm_medium=l&utm_content=content&utm_campaign=mayoclinic&marybel=[facility]&placementsite=[place]&vptrf=720511,?d iabeteshttps://www.[facility].org/diseases-conditions/diabetes/symptoms-causes/[facility]-63466379?mc_id=us&utm_source=newsnetwork&utm_medium=l&utm_content=content&utm_campaign=mayoclinic&marybel=national&placementsite=[place]&jlyud=066245,?high cholesterolhttps://www.[facility].org/diseases-conditions/ejmk-bemjg-kerwpkivsrp/symptoms-causes/[facility]-76955547?mc_id=us&utm_source=newsnetwork&utm_medium=l&utm_content=content&utm_campaign=mayoclinic&marybel=[facility]&placementsite=[place]&ajcwj=231805, ?seizureshttps://www.[facility].org/diseases-conditions/seizure/symptoms-causes/[facility]-85265166?mc_id=us&utm_source=newsnetwork&utm_medium=l&utm_content=content&utm_campaign=[facility]&marybel=[facility]&placementsite=[place]&rtlso=598313?and various heart ailments. Even common medications such as aspirin, ibuprofen and penicillin can be affected by an increase in fiber. You may take your medications one hour before or two hours after eating fiber to minimize the interaction. Some fiber supplements may not be appropriate for people with certain medical conditions. For example, if you have celiac disease, you may need to stay away from fiber products derived from wheat. If you have diabetes, you may need to use a flavorless formula to avoid extra sugar. Consult your health care provider for guidance about the appropriate fiber supplement. Go slow as you begin fiber therapy. Fiber supplements may cause abdominal bloating, cramping and flatulence, especially if you start at a high dose. Begin with a low dose, gradually increasing the amount of fiber. Don?t add more than 50 grams of fiber in a supplement per day, as that may affect how your body absorbs nutrients. Your health care provider can help determine what?s right for you. Drinking plenty of water and exercising regularly can help ease constipation, too. If increasing fiber doesn?t improve your symptoms, see your health care provider. Constipation can be a symptom of various underlying medical disorders, such as pelvic floor muscle dysfunction, slow gastrointestinal motility, anatomical abnormalities or endocrine dysfunction that may require different treatment.? Activity:: See above Diet:: See above Discharge Orders Discharge Orders: Discharge Order (Routine); Ordered 01/22/23 Ordered By: Ana Maria Riley DS: Diagnosis Discharge Diagnosis (1) Cervical spine fracture: Asessment and Plan: Status post C-spine fusion (2) Carotid artery dissection: (3) Obstructive sleep apnea: (4) Adenomatous polyps: Status: Acute Asessment and Plan: The patient is seen and examined after their colonoscopy.? The patient has been able to pass gas.? They are not having abdominal pain.? They have been able to tolerate liquids and a snack.? They do not have any nausea or vomiting.? They are not having any chest pain or shortness of breath.??? They are not having any rectal bleeding. Their vital signs have been stable-see nursing notes. We discussed findings during their colonoscopy, and any biopsies that were done/polyps that were removed. The patient will be sent a letter with any biopsy results, and when to repeat the colonoscopy.-see discharge instructions. Patient was given explicit instructions to follow-up regarding colonoscopy-refer to discharge instructions.? We reviewed resumption of medications. Patient verbalized understanding and discharged in stable and satisfactory condition- See nursing notes. (5) Diverticula of colon: Status: Acute
[2023-01-23 10:27] VITALS: BP 135/79; PULSE 84; RESP 18; TEMP 36.5; O2SAT 100
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
[2023-01-23 10:54] VITALS: BMI 21.3
[2023-01-23] MEDS: Lactated Ringers 1,000 ML 80 ML IV (11:20)
[2023-01-23 12:39] VITALS: BP 105/66; PULSE 68; RESP 16; TEMP 36.4; O2SAT 99
[2023-01-23 13:08] VITALS: BP 138/59; PULSE 69; RESP 17; TEMP 36.5; O2SAT 99
--- NOTE | 2023-01-23 14:13 | W.ANESPOSTOP ---
Postoperative Evaluation Date, Time and Location Date Performed: 01/23/23 Time Performed: 13:15 Patient Location: Day Surgery Unit Vital Signs Most Recent Imported Vital Signs: Most Recent Vital Signs Temp Pulse Resp BP Pulse Ox 36.5 C 69 17 138/59 L 99 01/23/23 13:08 01/23/23 13:08 01/23/23 13:08 01/23/23 13:08 01/23/23 13:08 Pain Score Most Recent Pain Score: Most Recent Pain Score Pain Level 0 01/23/23 13:08 Assessment Mental Status: Awake (Alert & Oriented to Patient Baseline) Airway and Respiratory Function: Patent airway with normal (patient baseline) respiratory exam Cardiovascular Function: Hemodynamically Stable Hydration Status: Adequately Hydrated Nausea & Vomiting: No Nausea or Vomiting Pain: Pt. Denies Any Pain Peripheral Nerve Block: Patient did not receive a nerve block
== END 2023-01-23 13:20 | disposition home or self-care (01) ==
LOC: SUR 10:22
PROVIDERS: PCP Internal Medicine; Visit Provider Surgery
PROC: 0DJD8ZZ Inspection of Lower Intestinal Tract, Via Natural or Artificial Opening Endoscopic (ICD-10-PCS; CPT 45378; principal; 2023-01-23 12:15)
DX: Z12.11 Encounter for screening for malignant neoplasm of colon (principal); G47.33 Obstructive sleep apnea (adult) (pediatric); K64.1 Second degree hemorrhoids; K57.30 Diverticulosis of large intestine without perforation or abscess without bleeding
CPT/HCPCS: G0121; 45378

== ENCOUNTER 2023-10-31 08:17 | Outpatient (REF) | payer MEDICARE, BC, SELFPAY ==
--- NOTE | 2023-10-31 07:45 | SKI_PTH ---
PATIENT: Yaneth Valdez LOC: [facility] U#:[id number] AGE/SX: 68/F ROOM: RE10/31/[address]: Carmelo Whipple MD : 1955 BED: DIS: 10/31/2023 SPEC #: [id number] RECD: 10/31/23 13:01 STATUS: ROXI REQ #: [id number] NANI: 10/31/23 07:[address]: Carmelo Whipple DEPT: Surgical Specimen RECD BY: Mandie Lo ENTERED: 10/31/23 13:01 SP TYPE: SKI OTHR DR: Nic Turk Tissues: 1 - SKIN BIOPSY(SHAVE/PUNCH) Procedures: GROSS AND MICRO LEVEL 3 Comments: [id number]
== END 2023-10-31 08:18 | disposition home or self-care (01) ==
LOC: LBN 08:17
PROVIDERS: PCP Internal Medicine; Visit Provider Otolaryngology
DX: L98.9 Disorder of the skin and subcutaneous tissue, unspecified (principal); L72.9 Follicular cyst of the skin and subcutaneous tissue, unspecified
CPT/HCPCS: 88304; 88305

== ENCOUNTER 2024-12-12 03:48 | Outpatient (CLI) | payer MEDICARE, BC, SELFPAY ==
--- NOTE | 2024-12-12 | DI.MRI_ITS ---
Exam(s) MR PELVIS WO EXAM: MR PELVIS WO CLINICAL HISTORY: LOW BACK PAIN W/O SCIATICA CONSISTANT W/SACROILIAC DYSFUNCTION TECHNIQUE: Multiplanar multisequence MRI of Pelvis was performed COMPARISON: CT CT THORAX CTA from 03/14/2020 MR MR LUMBAR SPINE WO from 12/12/2024 FINDINGS: Bones: There is no fracture or contusion pattern. No bone marrow edema is seen. Spine: nerve root sheath cysts are noted at S1 and S2, the largest measuring 15 x 9 millimeters on the left. Joints: No significant joint effusion. The SI joints and symphysis pubis are well maintained. There is no fluid at the SI joints or pubic symphysis. No bony erosions. Musculotendinous structures: Musculotendinous structures demonstrate no abnormality. Intrapelvic structures demonstrate no significant abnormality. IMPRESSION: Normal appearing SI joints. There are small bilateral nerve root sheath cysts at S1-2. These may be incidental or may cause mild nerve root compression. DATA REPOSITORY:
--- NOTE | 2024-12-12 13:52 | DI.MRI_ITS ---
Exam(s) MR LUMBAR SPINE WO EXAM: MR LUMBAR SPINE WO CLINICAL HISTORY: LOW BACK PAIN W/O SCIATICA CONSISTANT W/SACROILIAC DYSFUNCTION. TECHNIQUE: Multiplanar multisequence MRI of the Lumbar spine was performed. COMPARISON: No exams were available for comparison FINDINGS: Bones: The last intervertebral disc space is designated the L5/S1 level for the numbering purpose of this examination. The vertebral body heights are well maintained. Alignment: Unremarkable. The marrow signal characteristics are unremarkable. Cord: The conus tip ends at the T12 level. It is of normal size and signal intensity. T12-L1: No focal disc herniation is present. No central spinal canal stenosis.No neural foraminal stenosis. L1-2:Minimal disc bulging. No focal disc herniation is present. No central spinal canal stenosis.No neural foraminal stenosis. L2-3:Minimal disc bulging. No focal disc herniation is present. No central spinal canal stenosis.No neural foraminal stenosis. L3-4: Minimal disc bulging.No focal disc herniation is present. No central spinal canal stenosis.No neural foraminal stenosis. L4-5:Mild disc bulging. Mild facet degenerative changes. No focal disc herniation is present. No central spinal canal stenosis.No neural foraminal stenosis. L5-S1: No focal disc herniation is present. No central spinal canal stenosis.No neural foraminal stenosis. The visualized SI joints and sacrum are unremarkable. There are small Tarlov cysts at the S1-2 level. Soft tissues: The paraspinal soft tissues are unremarkable. IMPRESSION: Mild degenerative disc changes and facet degenerative changes. No evidence of disc herniation. No evidence of significant spinal stenosis or neuroforaminal narrowing. DATA REPOSITORY:
== END 2024-12-12 04:08 ==
LOC: DI 03:48
PROVIDERS: PCP Internal Medicine; Visit Provider Internal Medicine
DX: M51.360 Other intervertebral disc degeneration, lumbar region with discogenic back pain only (principal)
CPT/HCPCS: 72148; 72195

== ENCOUNTER → 2025-01-29 04:03 | Outpatient (CLI) | payer MEDICARE, BC, SELFPAY ==
--- NOTE | 2025-01-29 | DI.DEXA_ITS ---
Exam(s) XR DEXA BONE DENSITY W/WO ERICKSON EXAM: XR DEXA BONE DENSITY W/WO ERICKSON CLINICAL HISTORY: MENOPAUSAL STATE N95.1 OSTEOPENIA M85.89 TECHNIQUE: COMPARISON: No exams were available for comparison FINDINGS: Lateral Spine Image: Unremarkable. No compression deformities identified. Left hip: Total T-Score: -0.7 Total Z-Score: 0.7 T- and Z-scores: There is no evidence of osteoporosis. Lumbar Spine: Total T-Score: -1.8 Total Z-Score: 0.3 T- and Z-scores: There is osteopenia present. But there is no evidence of osteoporosis. IMPRESSION: No evidence of osteoporosis.
== END ==
LOC: DI 04:04
PROVIDERS: PCP Internal Medicine; Visit Provider Internal Medicine
DX: M85.89 Other specified disorders of bone density and structure, multiple sites (principal); N95.1 Menopausal and female climacteric states
CPT/HCPCS: 77080